=== PATIENT | male | born 1975 | race Caucasian/White ===

== ENCOUNTER 2021-06-04 18:01 | Emergency (ER) | payer BC, SELFPAY ==
--- NOTE | 2021-06-04 18:02 | ED.WOUNDLAC ---
HPI - Wound/Laceration General Chief Complaint: Extremity Injury, Upper Stated Complaint: Cut on right Hand Time Seen by Provider: 06/04/21 18:02 Source: patient and RN notes reviewed History of Present Illness HPI narrative: Patient is a 45-year-old male who presents the urgent care with complaints of a laceration to the right hand. Patient states that he was using a music box mechanic to cut siding 30 minutes prior to arrival and cut the top of his right hand. Patient denies of any use of [id number] medication or cleaning the wound prior to arrival. No other acute complaints. No acute distress noted. Patient aware of the plan of care. Some parts of this dictation were generated by voice recognition software and may contain typographical and/or grammatical inaccuracies. Related Data Home Medications Medication Instructions Recorded Confirmed atorvastatin 10 mg PO DAILY 06/04/21 06/04/21 cyclobenzaprine 10 mg PO PRN PRN 06/04/21 06/04/21 trazodone 50 mg PO HS 06/04/21 06/04/21 venlafaxine 75 mg PO DAILY 06/04/21 06/04/21 Allergies Allergy/AdvReac Type Severity Reaction Status Date / Time No Known Allergies Allergy Verified 06/04/21 18:23 Review of Systems Review of Systems: CONSTITUTIONAL: Denies fever, chills, or sweats. EYES: Denies visual changes, redness, or discharge. ENT: Denies rhinorrhea, congestion, sore throat, or otalgia. CARDIOVASCULAR: Denies chest pain, palpitations, or edema. RESPIRATORY: Denies cough or dyspnea. GASTROINTESTINAL: Denies abdominal pain, nausea, vomiting, or diarrhea. GENITOURINARY: Denies dysuria or hematuria. SKIN: Reports of laceration to the right hand MUSCULOSKELETAL: Denies back pain, joint pain, or myalgia. NEUROLOGIC: Denies headache, numbness, or weakness. All other systems reviewed are negative, except as documented in HPI. PMFSH Comments At the time of my signature, I reviewed and agree with the nursing past medical, surgical, social, and family history. There is no relevant family history pertinent to the patient complaint. Exam Narrative: GENERAL: This is a well-nourished, well-developed patient, in no apparent distress. HEAD: normocephalic, atraumatic. EYES: PERRL. Sclera clear/white. Vision is grossly intact. EARS: External ears normal NOSE: External nose normal with no obvious nasal discharge, nares without redness, no rhinorrhea. THROAT: Mucous membranes moist NECK: Neck supple CARDIOVASCULAR: Regular rate and rhythm without murmurs, gallops, or rubs. RESPIRATORY: Clear to auscultation. Breath sounds equal bilaterally. No wheezes, rales, or rhonchi. SKIN: 2 cm irregular flap laceration to the dorsal right hand just proximal of the right third knuckle NEURO: awake, alert, and oriented to person, place and time. There were no obvious focal neurologic abnormalities. EXTREMITIES: No clubbing, cyanosis, or edema. Course Vital Signs Vital signs: Vital Signs Temperature 98.9 F 06/04/21 18:06 Pulse Rate 80 06/04/21 18:06 Respiratory Rate 16 06/04/21 18:06 Blood Pressure 161/78 H 06/04/21 18:06 Pulse Oximetry 100 06/04/21 18:06 Temperature 98.9 F 06/04/21 18:06 Pulse Rate 80 06/04/21 18:06 Respiratory Rate 16 06/04/21 18:06 Blood Pressure 161/78 H 06/04/21 18:06 Pulse Oximetry 100 06/04/21 18:06 Reviewed-patient is informed that they may have pre-hypertension or hypertension based on a blood pressure reading in the department. I recommend the patient call the primary care provider listed on their discharge instructions or a physician of their choice this week to arrange follow-up for further evaluation of possible pre-hypertension or hypertension. Procedures Laceration Laceration 1: Site: hand Side (If applicable): right Description: flap Depth: simple, single layer Local Anesthetic: lidocaine 1% Amount of anesthesia used (mL): 1 Pre-repair: irrigated and irrigated extensively (PrimaDerm
[2021-06-04 18:06] VITALS: BP 161/78; PULSE 80; RESP 16; TEMP 37.2; O2SAT 100
[2021-06-04] MEDS: TETANUS,DIPHTHERIA,AC PERTUSSIS ADULT (0.5 ML) BOOSTRIX IM (18:41)
== END 2021-06-04 19:00 | disposition home or self-care (01) ==
PROVIDERS: Emergency Provider Nurse Practitioner Family; PCP Family Medicine
DX: S61.411A Laceration without foreign body of right hand, initial encounter (principal); W26.8XXA Contact with other sharp object(s), not elsewhere classified, initial encounter; Z23 Encounter for immunization; E78.00 Pure hypercholesterolemia, unspecified; F41.9 Anxiety disorder, unspecified
CPT/HCPCS: 12001; 90471; 90715; 99212; G0463

== ENCOUNTER 2021-06-21 02:26 | Day surgery (SDC) | payer BC, SELFPAY ==
[2021-06-20 13:52] VITALS: BMI 38.3
[2021-06-21] VITALS (8 sets, daily range): BP systolic 120–141; BP diastolic 64–87; PULSE 66–76; RESP 14–20; TEMP 37.1; O2SAT 94–99; BMI 38.2
--- NOTE | 2021-06-21 07:21 | WPDHPUPDATE1 ---
History and Physical Update Update Date/Time: 06/21/21 07:21 History and Physical has been reviewed, including an updated exam of the patient. There are NO changes in the patient's condition. Risks, benefits, and alternatives have been discussed and questions answered. Patient agrees to proceed with procedure.
[2021-06-21] MEDS: oxyCODONE/ACETAMINOPHEN (*CRX) 5-325 MG TABLET 1 TABLET PO (14:15)
[2021-06-21] MEDS: LIDO 1%/EPINEPHRINE 1:100,000 50 ML VIAL INFILTRATE (14:28)
--- NOTE | 2021-06-21 14:54 | PM.OP ---
Procedure Note - Brief Procedure Note - Brief Date of procedure: 06/21/21 Pre-op diagnosis: Tendon Laceration Right Middle Finger Post-op diagnosis: same Procedure performed: Repair of extensor digitorum communis to the right middle finger zone 5 Anesthesia: local Surgeon: Omar Holland MD Estimated blood loss (mL): 10 Drains: No Packing: No Pathology: none sent Complications: No immediate complications Condition: stable Disposition: same day Findings: Complete laceration the extensor digitorum and dorsal joint capsule
--- NOTE | 2021-06-21 14:58 | P.OP_ITS ---
Procedure Note - Detailed Date of Procedure 06/21/21 Pre-op Diagnosis Tendon Laceration Right Middle Finger Zone 5. Joint capsule laceration right middle finger MP joint. Post-op Diagnosis same Procedure Performed 6 strand repair of the extensor digitorum zone 5 right middle finger Surgeon Omar Holland MD Anesthesia local Indications Inability to extend the right middle finger Findings Complete laceration extensor digitorum communis and dorsal joint capsule of the right middle finger at the metacarpophalangeal joint Description of Procedure The appropriate site on the hand was marked for treatment. The patient was taken to the operating room and placed supine on the operating table. A time- out was held and confirmed. The site was marked for opening incision and infiltrated locally with 1% lidocaine with epinephrine. At anesthesia was obtained. The case was begun without tourniquet control but this was changed to arm tourniquet inflated 250 mmHg for most of the case. After elevating the skin flaps the lacerated structures were identified. There was also a lot of organized clot and early scar. The tendon was dissected and mobilized. The capsule was already open, the joint space was inspected. No pus was identified. The last 1 mm on each tendon and was amputated. The repairs were done with (2) 2 strand 3-0 Ethibond locking stitches and (1) 3-0 Ethibond [id number] over the top. No usable tissue was available to close the opening over the joint capsule. The skin wound was closed with running 4-0 nylon. A soft bandage with a fully aluminum foam splint was applied. The p atient is being discharged home instructions wound care follow-up. A prescription for Bactrim DS 10. And hydrocodone 5/325 10. Was sent to his pharmacy Estimated Blood Loss 0 Drains No Packing No Pathology none sent Complications No immediate complications Condition stable Disposition same day
== END 2021-06-21 15:09 | disposition home or self-care (01) ==
PROVIDERS: PCP Family Medicine; Visit Provider Plastic Surgery
PROC: (CPT 26418; principal; 2021-06-21 13:30)
DX: S66.322A Laceration of extensor muscle, fascia and tendon of right middle finger at wrist and hand level, initial encounter (principal); S63.652A Sprain of metacarpophalangeal joint of right middle finger, initial encounter; W26.9XXA Contact with unspecified sharp object(s), initial encounter
CPT/HCPCS: 26418; A9270; J1644

== ENCOUNTER → 2021-07-18 13:36 | Outpatient (CLI) | payer BC, SELFPAY ==
--- NOTE | ~2021-07-18 | US_ITS ---
US thyroid INDICATION: Thyroid enlargement. Choking sensation. TECHNIQUE: No prior studies for comparison. COMPARISON: No prior studies for comparison. FINDINGS: The right thyroid lobe measures 4.7 x 1.7 x 1.7 cm. The left thyroid lobe measures 3.7 x 1 .3 x 1.8 cm. There is normal echotexture and echogenicity throughout the thyroid gland. No discrete n odules identified. Normal vascular flow is present. IMPRESSION: 1. Normal thyroid without discrete nodule or abnormal vascularity. Reviewed, dictated and finalized at location A.
== END ==
PROVIDERS: PCP Family Medicine; Visit Provider Physician Assistant
DX: E04.9 Nontoxic goiter, unspecified (principal)
CPT/HCPCS: 76536

== ENCOUNTER 2021-07-30 13:30 | Outpatient (RCR) | payer BC, SELFPAY ==
--- NOTE | 2021-07-12 11:56 | OTOPEVAL ---
OCCUPATIONAL THERAPY INITIAL EVALUATION REPORT 07/12/21 Yunior is a 46 year-old, left handed male who presents to hand therapy 3 weeks following EDC repair of the right middle finger, zone V. A new split was fabricated today to support the MCP joint in extension with the IPs free. He was instructed in protected active ROM of the wrist and fingers. Continued skilled OT indicated for progression of exercises and education on weaning off the splint over the next 3 weeks. Thank you for referring Yunior Hernandez III to [facility].? The patient is scheduled to be seen for therapy? 1-2x/week for 4 weeks. Please review, sign, date and return this plan of care BRIT. I agree with and certify that the following plan of care is medically necessary. Referring Physician Date Referring Provider: Omar Holland MD *OT Outpatient Evaluation Start: 07/12/21 10:33 Outpatient Past Medical History Neurological History Hx Neurological Disorders No Significant History Cardiovascular History Hx Hypercholesterolemia Yes Respiratory History Hx Asthma Yes Hx Sleep Apnea Yes: CPAP Gastrointestinal History Hx Gastrointestinal Disorders No Significant History Genitourinary History Hx Benign Prostatic Hyperplasia Yes Musculoskeletal History Hx Other Musculoskeletal Disorders Yes: RT MIDDLE FINGER FLEXOR TENDON TEAR Hematological History Hx Hematological Disorders No Significant History Endocrine History Hx Endocrine Disorders No Significant History HEENT History Hx HEENT Disorders No Significant History Integumentary History Hx Skin Disorders No Significant History Reproductive History Hx Reproductive Disorders No Significant History Psychosocial History Hx Anxiety Yes Pain History History of Any Previous or Ongoing No Significant History Instance of Pain Anesthesia History Hx Anesthesia Reactions No Significant History Evaluation Information Problem Diagnosis s/p 6 strand repair of right EDC to middle finger, zone V Onset 06/21/21 Additional Evaluation Detail 06/04/21 - Initial injury 06/21/21 - Delayed repair of EDC 07/12/21 - OT begins Subjective Information 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 ADL [employer], Family he states he's getting by . He is able to complete cooking , dressing, etc. without assist. Prior Level of Function Activity Level (Last 3 Months) Occupation Meat Trimmer Hand Dominance Left Activity of Daily Living Ability Independent Indoor/Home Mobility Independent Community Mobility Independent Driving Yes
--- NOTE | 2021-07-30 14:02 | OTOPEVAL ---
OCCUPATIONAL THERAPY RE-EVALUATION AND DISCHARGE NOTE 07/30/21 Yunior presents for OT re-assessment following EDC repair of the right middle finger, zone V. The 15* extension lag at the MCP joint has remained unchanged since the start of care. Gross flexion of the finger has returned to functional limits with some slight end-range tightness (1cm gap with hook fist). He is currently independent with ROM and strengthening. No further skilled OT is indicated at this time. He has no restrictions from therapy stand-point regarding returning to work. Thank you for referring Yunior Hernandez III to [facility]. Please review, sign, date and return this D/C Note BRIT. I agree with and certify that the following plan of care is medically necessary. Referring Physician Date Referring Provider: Omar Holland MD *OT Outpatient Evaluation Start: 07/12/21 10:33 Evaluation Information Diagnosis s/p 6 strand repair of right EDC to middle finger, zone V Additional Evaluation Detail 06/04/21 - Initial injury 06/21/21 - Delayed repair of EDC 07/12/21 - OT begins 07/30/21 - OT D/C. Patient is independent with ROM and strengthening HEP. Subjective Information Patient states he is back to Query Text:As Reported By Patient/ normal hand use. States he has Family been using tools at home, mowing the grass, etc. He has been not wearing the splint for ~1.5 weeks. No pain. Pain Assessment Timing of Pain Assessment Timing of Pain Assessment Re-assessment Self Report Self Report Pain Level 0 Pain Score Pain Score 0: Self Report Upper Extremity Range of Motion Wrist Range of Motion Right Reason Not Measured WNL/Left Finger Range of Motion Right Middle Finger MCP Joint Flexion - Active 80 Middle Finger MCP Joint Extension - -15 Active Middle Finger PIP Joint Flexion - Active 85 Middle Finger PIP Joint Extension - 0 Active Middle Finger DIP Joint Flexion - Active 85 Middle Finger DIP Joint Extension - 0 Active Middle Finger Tip to Distal Palmar 1 Crease - Active Middle Finger Tip to Base of Palm - 0 Active Finger Range of Motion Comments 15* extension lag at the MCP joint. This remained unchanged since beginning therapy. Upper Extremity Muscle Strength Testing Wrist Strength Right Wrist Flexion Strength 5 Normal Wrist Extension Strength 5 Normal Finger Strength Right Finger Strength Comments (R) hand/finger strength is WNL. He is able to investigator welfare and pinch yellow putty without
== END 2021-07-30 17:25 | disposition home or self-care (01) ==
LOC: ANHOT 13:30
PROVIDERS: PCP Family Medicine; Visit Provider Plastic Surgery
DX: Z48.89 Encounter for other specified surgical aftercare (principal)
CPT/HCPCS: 97018; 97110; 97140; 97165; L3919

== ENCOUNTER 2025-04-13 09:54 | Outpatient (CLI) | payer BC, SELFPAY ==
--- OUTSIDE RECORDS SUMMARY | 2025-04-13 11:04 | XMS_ITS | CONTINUITY OF CARE DOCUMENT ---
Author Name armando, armando Address Unknown Organization [facility] Address [address] [place] [address] Phone [phone] Care Team Providers Care Pick Remover Name Role Phone Therese PAREKH, Ralf Unavailable [phone] Henry PAREKH, Robert Belinda Unavailable Henry PAREKH, Robert Belinda Unavailable [phone] PROBLEMS Condition Status Date Provider Notes Chest pain active Ralf Saleh MD Abnormal routine stress completed - Aaron Mcgrath MD FABIAN active Ralf Saleh MD Anxiety/depression active Ralf Saleh MD CAD active Aaron Mcgrath MD Dyslipidemia active Aaron Mcgrath MD ENCOUNTERS Date Type Provider Location Encounter Diag nosis - In-person encounter Office Visit Ralf Saleh MD [place] [facility] - In-person encounter Office Visit Aaron Mcgrath MD [place] [facility] Abnormal routine stressCADDyslipidemia - In-person encounter Office Visit Ralf Saleh MD [place] [facility] - In-person encounter Office Visit Ralf Saleh MD [place] [facility] Chest painOSAAnxiety/depression VITAL SIGNS Date Observation Value Provider Body Mass Index (Ratio) 40.09 kg/m2 Kimmie Saleh MD blood pressure, cuff size large Ke rri Estee blood pressure, diastolic 80 mm[Hg] Ke rri Rauenenfelder blood pressure, systolic 138 mm[Hg] Juan ri Fawadelder oxygen saturation, oximetry 97 % Chelsea Fawadelder respiratory rate E&M 14 /min Chelsea G ruenenfelder pulse rate 79 /min Chelsea Fawade lder weight E&M 256 [lb_av] Chelsea Kimnenfe lder height E&M 67 [in_i] Chelsea Fawade er blood pressure, diastolic 68 mm[Hg] Li nkLogic blood pressure, systolic 120 mm[Hg] Aurea kLogic Body Mass Index (Ratio) 39.93 kg/m2 Kwasi Mcgrath MD blood pressure, cuff size large Mi stacia [place] blood pressure, diastolic 68 mm[Hg] Mi stacia [place] blood pressure, systolic 120 mm[Hg] [facility] aprlienedelia [place] oxygen saturation, oximetry 98 % Shena Campoverde respiratory rate E&M 16 /min Radha landaverde [place] pulse rate 85 /min Shena brantley weight E&M 255 [lb_av] Shena brantley height E&M 67 [in_i] Shena brantley Body Mass Index (Ratio) 35.24 kg/m2 Kimmie Saleh MD blood pressure, diastolic 80 mm[Hg] Da imer Rui blood pressure, systolic 118 mm[Hg] Dac ia Rui oxygen saturation, oximetry 98 % Megan Rui respiratory rate E&M 16 /min Megan V oss pulse rate 83 /min Megan Rui weight E&M 225 [lb_av] Megan Rui height E&M 67 [in_i] Megan [place] Body Mass Index (Ratio) 35.86 kg/m2 Kimmie Saleh MD blood pressure, diastolic 90 mm[Hg] Da imer [place] blood pressure, systolic 132 mm[Hg] Dac ia [place] oxygen saturation, oximetry 96 % Megan [place] respiratory rate E&M 16 /min Megan V oss pulse rate 89 /min Megan [place] weight E&M 229 [lb_av] Megan [place] height E&M 67 [in_i] [facility] ALLERGIES No Known Drug Allergies RESULTS Date Observation Value Provider Reference Range Interpretation Location 8 lipoprotein, beta, serum, point, quantitative, calculated 62 mg/dL [facility] 0-99 8 very low density lipoproteins 10 mg/dL [facility] 5-40 8 HDL cholesterol, serum 55 mg/dL [facility] >39 8 triglyceride, serum, random 52 mg/dL [facility] 0-149 8 cholesterol, serum 127 mg/dL [facility] 648-076 8906/03/0 8 alanine aminotransferase (SGPT), serum 39 1/L [facility] 0-44 8 aspartate aminotransferase (SGOT), serum 31 1/L [facility] 0-40 8 alkaline phosphatase, serum 64 1/L [facility] 39-117 8 bilirubin, serum, total 0.4 mg/dL [facility] 0.0-1.2 8 albumin/globulin ratio, serum 1.6 [facility] 1.2-2.2 8 globulin, serum 2.8 [facility] 1.5-4.5 8 albumin, serum 4.6 g/dL [facility] 3.5-5.5 8 protein, total, serum 7.4 g/dL [facility] 6.0-8.5 8 calcium, serum 9.4 mg/dL [facility] 8.7-10.2 8 carbon dioxide, venous blood 25 mmol/L [facility] 20-29 8 chloride, serum 103 mmol/L [facility] 96-106 8 potassium, serum 4.4 mmol/L [facility] 3.5-5.2 8 sodium, serum 143 mmol/L [facility] 669-293 3184/03/0 8 urea nitrogen/creatinine ratio, serum 17 [facility] 9-20 8 eGFR if 97 mL/min/{1 .73_m2} [facility] >59 8 eGFR if not 84 mL/min/{1 .73_m2} [facility] >59 8 creatinine, serum 1.08 mg/dL [facility] 0.76-1.27 8 urea nitrogen, blood 18 mg/dL [facility] 6-24 8 blood glucose, random 88 mg/dL [facility] 65-99 9 prothrombin time (patient) 10.1 s [facility] 9.1-12.0 9 international normalized ratio (INR) 1.0 [facility] 0.8-1.2 9 lipoprotein, beta, serum, point, quantitative, calculated 105 mg/dL [facility] 0-99 High 9 very low density lipoproteins 13 mg/dL [facility] 5-40 9 HDL cholesterol, serum 57 mg/dL [facility] >39 9 triglyceride, serum, random 64 mg/dL [facility] 0-149 9 cholesterol, serum 175 mg/dL [facility] 913-674 2038/12/2 9 calcium, serum 9.4 mg/dL [facility] 8.7-10.2 9 carbon dioxide, venous blood 25 mmol/L [facility] 20-29 9 chloride, serum 101 mmol/L [facility] 96-106 9 potassium, serum 4.7 mmol/L [facility] 3.5-5.2 9 sodium, serum 140 mmol/L [facility] 712-760 3397/12/2 9 urea nitrogen/creatinine ratio, serum 16 [facility] 9-20 9 eGFR if 107 mL/min/{1 .73_m2} [facility] >59 9 eGFR if not 93 mL/min/{1 .73_m2} [facility] >59 9 creatinine, serum 0.99 mg/dL [facility] 0.76-1.27 9 urea nitrogen, blood 16 mg/dL [facility] 6-24 9 blood glucose, random 92 mg/dL [facility] 65-99 9 basophil count, absolute 0.0 x10E3/uL [facility] 0.0-0.2 9 Eosinophil Absolute Count 0.1 X10E3/UL [facility] 0.0-0.4 9 monocyte count, blood, automated 0.5 X10E3/UL [facility] 0.1-0.9 9 lymphocyte count, blood, automated 1.6 X10E3/UL [facility] 0.7-3.1 9 Absolute Neutrophils 3.0 X10E3/UL [facility] 1.4-7.0 9 basophils as percent of blood leukocytes 0 % [facility] Not Estab. 9 eosinophils as percent of blood leukocytes 2 % [facility] Not Estab. 9 monocytes as percent of blood leukocytes 9 % [facility] Not Estab. 9 lymphocytes as percent of blood leukocytes 30 % [facility] Not Estab. 9 neutrophils as percent of blood leukocytes 59 % [facility] Not Estab. 9 platelet count 243 X10E3/UL [facility] 451-196 3748/12/2 9 red blood cell distribution width 13.8 % [facility] 12.3-15.4 9 mean corpuscular hemoglobin concentration, RBC 35.7 G/DL [facility] 31.5-35.7 9 mean corpuscular hemoglobin, RBC 28.9 pg [facility] 26.6-33.0 9 mean corpuscular volume, RBC 81 fL [facility] 79-97 9 hematocrit, blood 44.3 % [facility] 37.5-51.0 9 hemoglobin, blood 15.8 g/dL [facility] 13.0-17.7 9 erythrocyte (RBC) count 5.46 X10E6/UL [facility] 4.14-5.80 9 leukocyte count, blood 5.2 X10E3/UL [facility] 3.4-10.8 HISTORY OF MEDICATION USE Medication Status Instructions Dates Provider Indications Com ments rosuvastatin 5 mg tablet active TAKE 1 TABLET BY MOUTH EVERY DAY Chelsea Fontanez Crestor 5 mg tablet completed Take 1 tablet by mouth once a day - Niki Carlton NP Crestor 5 mg tablet completed Take 1 tablet by mouth once daily - Ralf Saleh MD aspirin 81 mg tablet,delayed release (DR/EC) active 1 tablet by mouth once a day Ralf Saleh MD Lipitor 10 mg tablet completed 1 tablet by mouth once a day - Shaan Galicia RN Effexor XR 75 mg capsule,extende d release 24hr active Take 1 capsule by mouth once a day Moy Talbert NP Protonix 40 mg tablet,delayed release (DR/EC) active Take 1 tablet by mouth twice a day Moy Talbert NP trazodone 50 mg tablet active Take 0.5 tablet by mouth every night Megan Fabian SOCIAL HISTORY Date Observation Value Provider smoking, date started 10 Pankaj Carlton NP smoking, year quit 1999 Chelsea Ting manzo smoking history, tot al pack/day 1 Chelsea Fontanez cigarette use yes Chelsea cuevas smoking status Former smoker Chelsea Chelsey layton social history E&M S moking History: Angela bassett is a former smoker. Moy Talbert NP social history reviewed E&M revi ewed - no changes required Moy Talbert NP smoking, year quit 1999 Shena Campoverde smoking history, tot al pack/day 1 Shena Campoverde cigarette use yes Shena Malagon nd smoking status Former smoker Shena kaufman number of grandchildren Ralf Saleh MD U ruben Saleh MD social history E&M S moking History: Angela bassett is a former smoker. Ralf Saleh MD social history reviewed E&M revi ewed - no changes required Ralf Saleh MD alcohol use, average drinks per day social Megan Rui alcohol use yes Megan Rui smoking, year quit 1999 Megan Rosalina s smoking history, tot al pack/day 1 Megan Rui cigarette use yes Megan Rui smoking status Former smoker Megan Rui social history E&M S moking History: Angela bassett is a former smoker. Ralf Saleh MD social history reviewed E&M revi ewed - no changes required Ralf Saleh MD alcohol use, average drinks per day social Megan Rui alcohol use yes Megan Rui smoking, year quit 1999 Megan Rosalina s smoking history, tot al pack/day 1 Megan Rui cigarette use yes Megan Rui smoking status Former smoker Megan Rui FUNCTIONAL STATUS Date Observation Value Provider HRA, CV Assess/Plan, Angina (inactive) Management Plan continue current therapy Niki Carlton NP FAMILY HISTORY Family Member Condition First Degree Blood Relative No Known Fam mike History INSURANCE PROVIDERS Payer name Policy type / Coverage type [place] red democrat ID [facility] Blue [facility] [id number] ADVANCE DIRECTIVES Name Date DISCUSSED - NO DECISION MADE TREATMENT PLAN Date Name Performer [id number],C,no recurrence Niki Morenorafat PAINTING [id number],C,compliant wit h cpap Niki Carlton MERT [id number],C,C HOL: 127 (01/01/2019) HDL: 55 (01/01/2019) T he following medications were removed from the medication list: Crestor 5 Mg Tablet (Rosuvastatin) ..... Take 1 tablet by mouth once a day His updated medication list for this problem includes: Crestor 5 Mg Tablet (Rosuvastatin) ..... Take 1 tablet by mouth every day Niki Carlton MERT [id number],C, L ipids were at goal on low dose lipitor. H e says he has been holding lipitor for the last 3 or 4 months due to slightly elevated LFTs. Will obtain copy of labs. Moy Talbert MERT [id number],C, T he patient is using CPAP on a regular basis. The patient has been benefiting from therapy and should continue use. Moy Armstrongrigoberto PAINTING [id number],C, N o recent chest pain. R estart taking ASA 81mg. E KG today shows normal sinus rhythm. L V systolic function was previously normal, will repeat surveillance echo . Moy Ronpete PAINTING Cardiology:no recurrence Irinarae Morenorafat PAINTING Cardiology:compliant with cpap Mann nick Carlton SEAL M[employer]ER Cardiology:CHOL: 127 (01/01/2019) HDL: 55 (01/01/2019) T he following medications were removed from the medication list: Crestor 5 Mg Tablet (Rosuvastatin) ..... Take 1 tablet by mouth once a day His updated medication list for this problem includes: Crestor 5 Mg Tablet (Rosuvastatin) ..... Take 1 tablet by mouth every day Niki Morenorafat PAINTING Cardiology: L ipids were at goal on low dose lipitor. H e says he has been holding lipitor for the last 3 or 4 months due to slightly elevated LFTs. Will obtain copy of labs. Moy Talbert NP Cardiology: T he patient is using CPAP on a regular basis. The patient has been benefiting from therapy and should continue use. Moy Talbert NP Cardiology: N o recent chest pain. R estart taking ASA 81mg. E KG today shows normal sinus rhythm. L V systolic function was previously normal, will repeat surveillance echo . Moy Talbert NP Cardiology hospital follow up:pe r PCP Ralf Saleh MD Cardiology hospital follow up Us jessie Saleh MD Cardiology hospital follow up:Begin taking ASA 81mg. Continue Lipitor and check lipid profile, ALT/AST in 4 weeks. Plan to check labs every 6 months. Ralf Saleh MD Cardiology New patie nt: S uspect false-positive. Will check exercise nuclear stress test. Ralf Saleh MD Cardiology New patie nt: W ill schedule exercise nuclear stress test following abnormal routine stress test. Suspect anxiety-related or musculoskeletal pain. Ralf Saleh MD Date Name LIPID PANEL Complete Echo EKG COMPREHENSIVE METABO LIC PANEL, W/EGFR LIPID PANEL LIPID PANEL PROTHROMBIN TIME WIT H INR CBC (INCLUDES DIFF/P LT) BASIC METABOLIC PANE L W/EGFR STR - Exercise Nucle ar HISTORY OF PROCEDURES Procedure Date Procedure Name Provider Procedure Notes S tatus Schedule Followup Ralf Saleh MD [address] Saleh completed EKG Ralf Saleh MD completed Cardiolite, 2 units Ralf Saleh MD completed SPECT Images Gerard Asher MD compl eted Stress EKG Gerard Asher MD complet ed
--- OUTSIDE RECORDS SUMMARY | 2025-04-13 11:04 | XMS_ITS | Data Portability ---
Author Organization [place] [facility], Main Office Address [address] [place] [address] Care Team Providers Care Mail Superintendent Name Role Phone XAVI RIVERA Referring Provider Assessment No assessment recorded. Plan of Treatment Reminders Order Date Submit Date Provider Last Modified By Organization Details Last Modified Time Details Appointments None recorded. Lab None recorded. Referral None recorded. Procedures None recorded. Surgeries None recorded. Imaging audiogram + tympanogra m 2024 025 [facility] (Audiology), [address] [place] [address], [id number], 12:29:27 Medication Orders cefdinir 300 mg capsule 2024 025 [facility]/Pharmacy #[id number], [address] [place], [address], 12:22:33 Medrol (Denis) 4 mg tablets in a dose pack 2024 025 [facility]/Pharmacy #[id number], [address] [place], [address], 5 12:22:32 cefdinir 300 mg capsule [address]/Pharmacy #[id number], [address] [place], [address], 5 12:10:44 Ciprodex 0.3 %-0.1 % ear drops,susp ension [address] [facility]/Pharmacy #[id number], [address] [place], [address], 5 12:10:47 Patient TargetsNo targets recorded. Patient Instructions Encounter Date Encounter Id Patient Instructions Last Modified By Organization Details Last Modified Time 02/22/2025 [id number] prescribed cefdinir for treatment of underlying sinus infection. We will hold off on further steroid therapy as he has recently been on 2 rounds, most notably finished a course one-week ago. Prescribed Ciprodex to aid in Eustachian tube dysfunction. Advised use of the Valsalva maneuver frequently to aid in opening the Eustachian tubes. If symptoms continue to persist after completion of medications as advised to contact the office to be seen for a further evaluation. [email or web address] Not available 02/23/2025 11:03:33 Reason for Referral None Reported. Problems Name Problem SNOMED Code Status Onset Date Resolution Date Notes Provider Name and Address Organization Details Recorded Time Microscopi c hematuria 822926605 Active Not Available [facility] 3 15:41:50 Blood in urine 74498525 Active Not Available [facility] 3 15:41:50 Acute sinusitis 74864114 Active 2024 DENISHA French [address], [place], [address] , [facility] [employer] [facility] 5 16:28:23 Dysfunctio n of left eustachian tube 9659207500107 106 Active 2024 DENISHA French [address], [address], [place], [address] , [facility] 5 16:28:33 Sensorineu ral hearing loss of bilateral ears 260162414 Active 2024 Pretty Copeland RN null, [facility] 5 12:18:47 Chronic sinusitis 57377238 Active 2024 Pretty Copeland RN null, [facility] 5 12:19:07 Chronic sinusitis 31482443 Active 2024 Raghavendra Roque MD [address], [place], [address] , [facility] [employer] [facility] 12:21:27 Bilateral chronic serous otitis 544528703 Active 2024 Raghavendra Roque MD [address] [facility] [address], [place], [address] , [facility] [employer] [facility] 12:21:50 Problem Notes None recorded. Medical Equipment None Reported. Allergies No known drug allergies Medications Name Sig Start Date Stop Date Status Note LastModified by Organization Details LastModified Time venlafaxine ER 75 mg capsule,ext ended release 24 hr TAKE 1 CAPSULE BY MOUTH EVERY DAY active Not Available Not Available No t Available Medrol (Denis) 4 mg tablets in a dose pack Take 1 dose pk by oral route. 2024 active Not Available Not Available Not Avai lable prednisone 20 mg tablet 2 (TWO) TABLET DAILY X 5 DAYS, THEN 1 TAB DAILY X 5 DAYS 04/07 completed Not Available Not Available Not Available cefdinir 300 mg capsule Take 1 capsule every 12 hours by oral route for 10 days. 2024 active Not Available Not Available Not Avai lable ciprofloxac in 0.3 %-dexametha sone 0.1 % ear drops,suspe nsion INSTILL 4 DROPS INTO AFFECTED EAR(S) TWICE A DAY FOR 7 DAYS 04/07 completed Not Available Not Available Not Available rosuvastati n 5 mg tablet TAKE 1 TABLET BY MOUTH EVERY DAY TAKE 1 TABLET BY MOUTH EVERY DAY active Not Available Not Available No t Available Vitals Date Recorded Body height Body mass index (BMI) Body weight Body temperature Provider Name and Address Organization Details Last Updated DateTime 02/22/2025 167.64 cm 40.4 kg/m2 055570.25 g 98.1 [degF] Le Cruz CNA [facility] [employer] 02/22/2025 16:17:44 Date Recorded Body height Body mass index (BMI) Body weight Body temperature Provider Name and Address Organization Details Last Updated DateTime 04/07/2025 167.64 cm 40.7 kg/m2 125835.28 g 97.8 [degF] Pretty Copeland RN [facility] [employer] [facility] 04/07/2025 12:14:03 Social History None recorded. Functional Status Question Answer Note LastModified by Organizat ion Details LastModified Time What is your level of alcohol consumption? Occasional [email or web address] Information not available 02/22/2025 Mental Status None recorded. Family History Nothing Reported Notes:son-ear issue removed cartliage Medical History No medical history recorded. Past Encounters Encounter ID Performer Location Encounter Start Date Encounter Closed Date Diagnosis/Indication Diagnosis SNOMED-CT Code Diagnosis ICD10 Code Diagnosis Note [id number] Raghavendra Roque MD [facility] [place] [address] [place] [address] 02/22/2025 15:51:03 02/22/2025 17:24:13 Acute sinusitis 20361105 J01.90 Dysfunctio n of left eustachian tube 9642808786 789199 H69.92 [id number] MD MAHESH [facility] [place] [address] [place] [address] 04/07/2025 12:08:44 04/08/2025 10:50:41 Chronic sinusitis 10018266 J32.9 Bilateral chronic serous otitis 183933124 H65.23 Health Concerns Section Related Observation LastModified by Organization Detai ls LastModified Time None Recorded Concern Status LastModified by Organization Details LastModified Time None Recorded Advance Directives Directive None Recorded Payers Insurance Date Sequence Insurance Name Policy Number Policy Pisano Covered Member ID Pisano Member ID Guarantor Name 04/07/2025 1 [place] [id number] Yunior Hernandez [id number] Yunior Hernandez Notes Date Note Type Note Provider Name and Address Organization Details Recorded Time 02/22/2025 text/html This patient has no significant past medical history. He presents to the office with a complaint of bilateral ear congestion, left worse than the right. He states that approximately 2 months ago he had developed a sinus infection that is had preceded his ear congestion symptoms. He denies being prescribed oral antibiotics for his sinus infection. He has been on 2 rounds of oral steroids. His most recent 1 was finished just last week. He states that he often gets an annual sinus infection but does not concern him at this time for further imaging. He has been attempting use of the Valsalva maneuver without relief. Pretty Aaron, [employer] [address], [place], [address], [facility] [employer] [facility] 02/23/2025 11:03:36 04/07/2025 text/html this patient has had a sinus infection and clogged ears for 3-4 months. The Medrol Dosepak helped some. He thinks antibiotics were possibly helpful. He does have some hearing loss bilaterally with his presumed fluid. Raghavendra Roque MD [address], [facility] [address], [place], [address], [facility] [employer] [facility] 04/07/2025 12:23:24
== END 2025-04-13 09:55 | disposition home or self-care (01) ==
LOC: ANHAUDIO 09:54
PROVIDERS: PCP Family Medicine; Visit Provider Otolaryngology
DX: H93.8X2 Other specified disorders of left ear (principal); H90.3 Sensorineural hearing loss, bilateral
CPT/HCPCS: 92557; 92567

== ENCOUNTER 2025-04-22 09:47 | Outpatient (CLI) | payer BC, SELFPAY ==
--- NOTE | ~2025-04-22 | CT_ITS ---
CT sinus wo con Ordering provider: Raghavendra Roque, History: . Chronic sinusitis, no hx of cancer . Comparison: None Technique: Thin slice Scans CT of the paranasal sinuses was performed with coronal and sagittal refor matted images. No IV contrast. . Automated exposure control and iterative reconstruction technique w ere employed. The dose-length product was 316.52 mGy-cm. Findings: NASAL SEPTUM: Mild right nasal septal deviation. OSTEOMEATAL UNITS: Bilaterally patent. NASAL TURBINATES AND NASOPHARYNX: Normal. Rosie bullosa in the right middle turbinate is noted. PARANASAL SINUSES: Bilateral maxillary sinus disease. Otherwise, Well aerated. VISUALIZED MASTOIDS: Effusion in both mastoid air cells. BONES: Normal. SUPERFICIAL SOFT TISSUES/VISUALIZED BRAIN PARENCHYMA: Normal. IMPRESSION: Bilateral maxillary sinus disease. Right nasal septal deviation. Reviewed, dictated and finalized at location A.
== END 2025-04-22 09:48 | disposition home or self-care (01) ==
PROVIDERS: PCP Family Medicine; Visit Provider Otolaryngology
DX: J32.0 Chronic maxillary sinusitis (principal); J34.2 Deviated nasal septum
CPT/HCPCS: 70486